=== PATIENT | male | born 1955 | race Caucasian/White ===

== ENCOUNTER 2017-04-24 13:35 | Emergency (ER) | payer SELFPAY ==
[~2017-04-24] VITALS: Ht 177.8 cm; Wt 80.0 kg
[2017-04-24 13:41] VITALS: BP 125/91; PULSE 85; RESP 16; TEMP 98.1; O2SAT 99
--- NOTE | 2017-04-24 14:04 | PD ---
HPI . back pain x years worsening x 3 mts Chief Complaint: Pain: Acute or Chronic Time Seen by Provider: 14:00 Travel History International Travel<30 days: No Contact w/Intl Traveler<30days: No Traveled to known affect area: No History of Present Illness HPI C1 year-old male with past medical history significant for chronic back pain status post 2 surgeries in the past here with complaints of worsening back pain over the past 3 months. Patient said that he recently followed [facility] and they gave him some tramadol, which is not helping. He is also taking Flexeril, gabapentin, and diclofenac. He says that his providers at the [facility] are incompetent. He denies any bowel or bladder dysfunction. He has no saddle anesthesia. He rates the pain as 7/10 without radiation elsewhere. He denies any urinary changes. He denies fever or chills. He has no other complaints. He is ambulatory. He tells me that the pain is worse when he sits down for a long period of time. PFSH Past Medical History Arthritis: Yes Asthma: No Autoimmune Disease: No Blood Disorders: No Anxiety: No Depression: Yes Heart Rhythm Problems: No Cancer: No Cardiac Catheterization: No Cardiovascular Problems: No High Cholesterol: Yes Chemotherapy: No Chest Pain: Yes Congestive Heart Failure: No COPD: No Cerebrovascular Accident: No Diabetes: No Diminished Hearing: No Endocrine: No Gastrointestinal Disorders: Yes GERD: No Glaucoma: No Genitourinary: Yes Headaches: No Hepatitis: No Hiatal Hernia: No Hypertension: No Immune Disorder: No Kidney Stones: Yes Musculoskeletal: Yes (back) Neurologic: Yes Psychiatric: Yes Respiratory: Yes (PNEUMONIA THIS ADMISSION) Myocardial Infarction: No Radiation Therapy: No Renal Failure: No Seizures: No Sickle Cell Disease: No Sleep Apnea: No Thyroid Disease: No Ulcer: No Past Surgical History AICD: No Arteriovenous Shunt: No Body Medical Devices: PINS AND SCREWS IN RLE Insulin Pump: No Joint Replacement: No Neurologic Surgery: Yes (LUMBAR LAMINECTOMY) Pacemaker: No Thoracic Surgery: Yes (LAMINECTOMY 09/28) Other Surgery: Yes (BILAT HAND SURG 2003) Social History Alcohol Use: Yes (once a month) Tobacco Use: Yes (1 PPD) Substance Use: No Allergies-Medications (Allergen,Severity, Reaction): Coded Allergies: No Known Allergies (Unverified , 04/24/17) Reported Meds & Prescriptions Reported Meds & Active Scripts Active Prednisone 20 Mg Tab 20 Mg PO DAILY 5 Days Reported Tramadol (Tramadol HCl) 50 Mg Tab 50 Mg PO Q6H PRN Trazodone (Trazodone HCl) 100 Mg Tablet 100 Mg PO HS Viagra (Sildenafil Citrate) 100 Mg Tab 100 Mg PO DAILY PRN Pravastatin 40 Mg Tab 40 Mg PO DAILY Lidocaine Topical (Lidocaine HCl) 5 % Oint 1 Applic TOPICAL DAILY PRN Gabapentin 600 Mg Tab 600 Mg PO HS Duloxetine DR (Duloxetine HCl) 60 Mg Capdr 60 Mg PO DAILY Diclofenac Potassium 50 Mg Tab 50 Mg PO TID Flexeril (Cyclobenzaprine HCl) 10 Mg Tab 10 Mg PO TID Capzasin-Hp Topical (Capsaicin) 0.1% Cream 1 Applic TOPICAL TID Review of Systems General / Constitutional: No: Fever Eyes: No: Visual changes HENT: No: Headaches Cardiovascular: No: Chest Pain or Discomfort Respiratory: No: Shortness of Breath Gastrointestinal: No: Abdominal Pain Genitourinary: No: Dysuria Musculoskeletal: Positive: Pain (lower back pain ) Skin: No Rash Neurologic: No: Weakness Psychiatric: No: Depression Endocrine: No: Polydipsia Hematologic/Lymphatic: No: Easy Bruising Physical Exam Narrative GENERAL: AAO x 3, no acute distress, Well-nourished, well-developed patient. SKIN: Warm and dry. No visible rashes or bruising. HEAD: Normocephalic and atraumatic. EYES: No scleral icterus. No injection or drainage. ENT: No nasal drainage noted. Mucous membranes pink. Airway patent. NECK: Supple, trachea midline. No JVD. CARDIOVASCULAR: Regular rate and rhythm without murmurs, gallops, or rubs. RESPIRATORY: Breath sounds equal bilaterally. No accessory muscle use. No rhonchi or rales. GASTROINTESTINAL: Abdomen soft, non-tender, nondistended. EXTREMITIES: No cyanosis or edema. ambulatory. SLR negative b/l BACK: Nontender. Old surgical scar and kyphosis. non tender spine. NEURO: CN II-12 intact, crm consultant strength normal b/l, UE and LE 5/5, no focal deficits PSYCH: AAO x 3, normal affect. Data Data Last Documented VS Vital Signs Date Time Temp Pulse Resp B/P (MAP) Pulse Ox O2 Delivery O2 Flow Rate FiO2 04/24/17 14:51 97.8 78 17 120/77 (91) 99 Orders Orders Ketorolac Inj (Toradol Inj) (04/24/17 14:30) Methylprednisolone So Succ Inj (Solumedr (04/24/17 14:30) MDM Medical Decision Making Medical Screen Exam Complete: Yes Emergency Medical Condition: Yes Medical Record Reviewed: Yes Differential Diagnosis acute on chronic back pain, lumbar radiculopathy, spinal stenosis, less likely acute fracture Narrative Course 61-year-old male here with acute on chronic complaints of lower back pain. His examination is fairly unremarkable. I've discussed this case with my attending Dr. Liu. We do not feel workup is recommended at this time. I do believe patient would benefit from an MRI, however this could be done on outpatient basis. I explained to him that ultimately he may need to consider epidural injections and physical therapy. In the meantime, I will provide him with Toradol and Solu-Medrol here in the emergency department. I will discharge him with a course of steroids. He can continue to use his Flexeril, gabapentin, diclofenac and tramadol. I recommend outpatient follow-up at [facility]. Patient verbalized understanding of instructions, questions were answered, and thanked me for their care. I advised them if their condition worsens, please return to the nearest emergency room for further care. Diagnosis Primary Impression: Lumbago Qualified Codes: M54.5 - Low back pain Referrals: [facility] Patient Instructions: General Instructions Additional Instructions: Please return to emergency department if your symptoms return or worsen. Follow up with your primary care provider. Take medications as prescribed. Med/Other Pt SpecificInfo: Prescription(s) given Scripts Prednisone (Prednisone) 20 Mg Tab 20 MG PO DAILY for 5 Days, TAB 0 Refills Prov: Jose C Liu MD 04/24/17 Disposition: 01 DISCHARGE HOME Condition: Stable Grace [place] Apr 24, 2017 14:04
[2017-04-24] MEDS ORDERED: TRAZ100T6 PO (14:13)
[2017-04-24] MEDS ORDERED: DICL50TA PO (14:13)
[2017-04-24] MEDS ORDERED: CYCL1TAB29 PO (14:13)
[2017-04-24] MEDS ORDERED: GABA600T PO (14:13)
[2017-04-24] MEDS ORDERED: VIAG100T PO (14:13)
[2017-04-24] MEDS ORDERED: TRAM50TA PO (14:13)
[2017-04-24] MEDS ORDERED: LIDO5%T TOPICAL (14:13)
[2017-04-24] MEDS ORDERED: CAPZ0.1C TOPICAL (14:13)
[2017-04-24] MEDS ORDERED: PRAV40TA2 PO (14:13)
[2017-04-24] MEDS ORDERED: DULO1CAP3 PO (14:13)
[2017-04-24] MEDS ORDERED: PRED20 PO (14:21)
[2017-04-24] MEDS ORDERED: KETOROLAC TROMETHAMINE 60 MG/2 ML (IM) VIAL IM ONE (14:30)
[2017-04-24] MEDS ORDERED: methylPREDNISolone SOD SUCC 125 MG/2 ML VIAL IM ONE (14:30)
[2017-04-24 14:51] VITALS: BP 120/77; TEMP 97.8
== END 2017-04-24 14:40 | disposition home or self-care (01) ==
LOC: NEPD 13:35
DX: M54.5 Low back pain (principal); G89.29 Other chronic pain; F17.200 Nicotine dependence, unspecified, uncomplicated
CPT/HCPCS: 96372; 99284; J1885; J2930